=== PATIENT | male | born 1935 | race Caucasian/White ===

== ENCOUNTER 2017-04-24 13:46 | Emergency (ER) | payer OTHER ==
[2017-04-24 13:58] VITALS: RESP 16
--- NOTE | 2017-04-24 16:10 | EDPHY ---
General Narrative: CHIEF COMPLAINT: Toe injury HISTORY OF PRESENT ILLNESS: Patient complains of right toe pain. This started yesterday when he accidentally stubbed at home. Sudden onset of pain that was mild. It worsened throughout the day into this morning. He also noted some bruising about this today. No numbness or tingling. No pain in the right mid foot or heel. No laceration. Does not take any anticoagulants. Pain is moderate to severe when he walks on it. It is minimal at rest. It does not radiate. There is no sensory complaints. No other associated complaints or modifying factors. ESTABLISHED ORTHOPEDIST: Dr. Valverde REVIEW OF SYSTEMS: Ten systems reviewed and are negative unless otherwise noted in the HPI PAST MEDICAL HISTORY: Acid reflux, prostate cancer, osteoarthritis PAST SURGICAL HISTORY: Rotator cuff repair, right hip surgery, tonsillectomy SOCIAL HISTORY: Nonsmoker. Retired FAMILY HISTORY: Noncontributory EXAMINATION General Appearance: Alert, no distress Cardiovascular: Pulses normal throughout. Symmetric DP pulses 2+. Symmetric PT pulses 2+. Brisk cap refill Neurological: A&O, normal light sensation on the top of the right foot. Skin: Warm and dry, no rash. Ecchymosis to the right 4th and 5th metatarsals and right 5th toe. No laceration or abrasion. Extremities: Tenderness of the right little toe, proximal phalanx greater than middle and distal phalanges. No crepitus. Warm to the touch with brisk cap refill. No tenderness of the right midfoot. No tenderness of the right calcaneus. Range of motion of the right foot is symmetric to the left. Psychiatric: Mood and affect normal DIFFERENTIAL DIAGNOSES: Including but not limited to hematoma, fracture, sprain, fracture dislocation, dislocation MDM: 4:10 p.m. Closed fracture at the base of the right little toe, proximal phalanx, transverse. He is in no acute distress and neuro intact. He will be placed in a postoperative shoe. He will follow up with his established orthopedist. We discussed weight-bearing as tolerated with light activity. We discussed ED precautions. He and his were comfortable with this plan. Discharged in stable condition ED Precautions: Worsening pain. Erythema, edema, cyanosis, pallor, paresthesia or anesthesia. - Diagnostics Imaging Results: Imaging Impressions Toe X-Ray 04/24/17 13:58 Impression: 1. Minimally displaced transverse fracture through the base of the proximal phalanx. 2. Hallux valgus. - History Smoking Status: Never smoked - Objective Vital Signs: Initial Vital Signs Temperature (C) 98.4 F 04/24/17 13:56 Heart Rate 56 L 04/24/17 13:56 Respiratory Rate 16 04/24/17 13:56 Blood Pressure 113/52 L 04/24/17 13:56 O2 Sat (%) 96 04/24/17 13:56 O2 Delivery Mode Room Air Allergies/Adverse Reactions: No Known Allergies Allergy (Verified 08/04/15 13:34) Home Medications: Medication Instructions Recorded Ascorbic Acid [Vitamin C 500 mg 500 mg PO DAILY 07/06/15 (*)] CALCIUM CARBONATE [CALCIUM] 300 mg PO DAILY 07/06/15 Cholecalciferol Vit D3 [Vitamin D3 1,000 units PO DAILY 07/06/15 (*)] Herbals/Supplements -Info Only 1 ea PO DAILY 07/06/15 Lansoprazole [Prevacid] 15 mg PO BID 08/19/15 Prilosec 04/24/17 Departure - Departure Disposition: Home, Routine, Self-Care Clinical Impression: Nondisplaced fracture of lesser toe of right foot Qualifiers: Encounter type: initial encounter Fracture type: closed Phalanx: proximal Qualified Code(s): S92.514A - Nondisplaced fracture of proximal phalanx of right lesser toe(s), initial encounter for closed fracture Condition: Good Instructions: Toe Fracture (ED) Additional Instructions: 1. Weightbearing as tolerated with light activity recommended 2. Post operative shoe as described until seen by orthopedist 3. Contact established orthopedist for definitive care 4. ED precautions as discussed Referrals: JO SINGLETARY [Primary Care Provider] - As per Instructions Emerson Valverde MD [Medical Doctor] - As per Instructions
[2017-04-24 16:25] VITALS: BP 141/91; PULSE 57; TEMP 97.7; O2SAT 91
== END 2017-04-24 16:22 | disposition home or self-care (01) ==
DX: S92.511A Displaced fracture of proximal phalanx of right lesser toe(s), initial encounter for closed fracture (principal); Z85.46 Personal history of malignant neoplasm of prostate; W22.8XXA Striking against or struck by other objects, initial encounter; Y92.009 Unspecified place in unspecified non-institutional (private) residence as the place of occurrence of the external cause

== ENCOUNTER → 2017-08-19 | Outpatient (CLI) | payer OTHER | LOC: FIMAGING 11:11 | PROVIDERS: ATTEND Internal Medicine Gastroenterology | DX: K59.00 Constipation, unspecified (principal); M51.37 Other intervertebral disc degeneration, lumbosacral region; Z96.641 Presence of right artificial hip joint ==